=== PATIENT | female | born 1960 | race Caucasian/White ===

== ENCOUNTER 2017-07-03 22:15 | Observation (INO) | payer BC ==
--- NOTE | 2017-07-03 22:42 | PDOC ---
History of Present Illness - General Stated Complaint: CHEST PAIN Time Seen by Provider: 07/03/17 22:41 - History of Present Illness Initial Comments: 56 year old female with PMH of HTN, HLD, and migraines presenting with intermittent chest pain for the past 5 hours. Describes the pain as a pinching let sided pain that is worse with movement and does not co-present with nausea, vomiting, diaphoresis, shoulder radiation, or shortness of breath. She has had a similar pain before but it was not this bad. Her PCP is Dr. Rice and animal daycare provider is Liz. She had an exercise stress performed 3 years prior that was without obvious pathology. Denies fevers, chills, nausea, vomiting, diarrhea , or other symptoms. 07/03/17 23:11 Past History - Past Medical History Allergies/Adverse Reactions: Allergies Allergy/AdvReac Type Severity Reaction Status Date / Time codeine Allergy Rash Verified 07/03/17 22:43 Home Medications: Ambulatory Orders Aspirin 81 mg PO DAILY 09/30/12 Rosuvastatin Calcium [Crestor] 20 mg PO DAILY 12/27/15 Alirocumab [Praluent Pen] 75 mg SQ MONTHLY 07/04/17 Dexlansoprazole [Dexilant] 60 mg PO DAILY 07/04/17 Folic Acid 1 mg PO DAILY 07/04/17 Nadolol [Corgard -] 40 mg PO DAILY 07/04/17 Diabetes: Yes (INDIGESTION) GI Disorders: Yes (gerd) Hypercholesterolemia: Yes - Surgical History Abdominal Surgery: Yes Appendectomy: Yes - Suicide/Smoking/Psychosocial Hx Smoking Status: No Smoking History: Never smoked Number of Cigarettes Smoked Daily: 0 Hx Alcohol Use: No Drug/Substance Use Hx: No Substance Use Type: None Review of Systems - Review of Systems Constitutional: No: Chills, Diaphoresis, Fever, Loss of Appetite HEENTM: No: Recent change in vision, Double Vision Respiratory: No: Cough, Orthopnea, Shortness of Breath Cardiac (ROS): Yes: Chest Pain. No: Irregular Heart Rate, Chest Tightness ABD/GI: No: Diarrhea, Nausea, Vomiting : No: Burning, Dysuria, Discharge Musculoskeletal: No: Back Pain, Joint Pain, Neck Pain Integumentary: No: Lesions, Lumps Neurological: No: Headache, Numbness Psychiatric: No: Anxiety, Depression *Physical Exam - Physical Exam General Appearance: Yes: Nourished, Appropriately Dressed. No: Apparent Distress HEENT: positive: EOMI, ANIYA, Normal ENT Inspection, Normal Voice Neck: positive: Trachea midline, Normal Thyroid, Supple. negative: Tender, Rigid Respiratory/Chest: positive: Lungs Clear, Normal Breath Sounds. negative: Chest Tender, Respiratory Distress, Accessory Muscle Use Cardiovascular: positive: Regular Rhythm, Regular Rate Gastrointestinal/Abdominal: positive: Normal Bowel Sounds, Flat, Soft. negative : Tender Musculoskeletal: positive: Normal Inspection, CVA Tenderness Extremity: positive: Normal Capillary Refill, Normal Inspection, Normal Range of Motion, Pelvis Stable. negative: Tender Integumentary: positive: Normal Color, Dry, Warm Neurologic: positive: impregnator and drier II-XII NML intact, Fully Oriented, Alert, Normal Mood/ Affect, Normal Response, Motor Strength 07/02 ED Treatment Course - LABORATORY CBC & Chemistry Diagram: 07/03/17 23:00 07/03/17 23:00 Medical Decision Making - Medical Decision Making 56 year old female presenting with low risk chest pain but with positive Troponin without EKG changes (NSR, rate 63, MS 142, QRS 66, QTC 405, no ST wave changes). CXR clear. She has had elevated troponins in the past but her previous was not this high. Other labs WNL. Will admit to tele-obs under Dr. Franco/ Silvestre. 07/04/17 00:32 *DC/Admit/Observation/Transfer Diagnosis at time of Disposition: Troponin I above reference range - Discharge Dispostion Condition at time of disposition: Stable Admit: Yes - Referrals Referrals: Paola Rice MD [Primary Care Provider] - - Patient Instructions - Post Discharge Activity
[2017-07-03 22:46] VITALS: BMI 27.0
[2017-07-03 23:14] LABS: BASO % 0.5 % (0-2.0); EOS % 2.2 % (0-4.5); HEMATOCRIT 38.4 % (32.4-45.2); HEMOGLOBIN 13.1 GM/dL (10.7-15.3); LYMPH % 33.8 % (8-40); MCH 31.7 pg (25.7-33.7); MEAN CELL VOLUME 93.1 fl (80-96); MEAN PLT VOLUME 9.8 fl (7.5-11.1); MONO % 5.4 % (3.8-10.2); NEUT % 58.1 % (42.8-82.8); PLATELET COUNT 187 K/MM3 (134-434); RBC 4.13 M/mm3 (3.60-5.2); RDW 14.3 % (11.6-15.6); WHITE BLOOD COUNT 7.3 K/mm3 (4.0-10.0)
--- NOTE | 2017-07-03 23:16 | PDOC ---
Attending Attestation - Resident Resident Name: AdrianaSusisilvinoashli - ED Attending Attestation I have performed the following: I have examined & evaluated the patient, The case was reviewed & discussed with the resident, I agree w/resident's findings & plan - HPI HPI: 07/03/17 23:13 Pt is here for Chest "pinching" on the right side; pain is on the right side and non radiating. - Physicial Exam PE: 07/03/17 23:15 Agree with exam - Medical Decision Making 07/03/17 23:15 Labs will be done and EKG and CXR 07/04/17 02:11 +trop. Pt will be admitted to teleetry for cardaic workout. Heart Score/ECG Review - Age Age: 45-65 - Risk Factors Risk Factors Heart Score: Yes Hx Hypercholesterolemia, Yes Hx Hypertension - [place]: Normal - P and KS Delta Wave(s) Present: No WPW: No - ST and T Early Repolarization: No Non Specific ST-T Wave changes: No - ECG Impressions Normal ECG: Yes Bradycardia: No
[2017-07-03 23:22] LABS: URINE APPEARANCE CLEAR; URINE BILIRUBIN NEGATIVE (<2.0 mg/dL); URINE COLOR LTYELLOW; URINE GLUCOSE (UA) NEGATIVE (NEGATIVE); URINE KETONE NEGATIVE (NEGATIVE); URINE LEUK ESTERASE NEGATIVE (NEGATIVE); URINE NITRITE NEGATIVE (NEGATIVE); URINE PROTEIN NEGATIVE (NEGATIVE); URINE UROBILINOGEN NEGATIVE mg/dL (0.2-1.0)
[2017-07-03 23:24] LABS: EPI CELLS RARE /HPF (FEW); URINE MUCUS RARE
[2017-07-03 23:26] LABS: INR 1.01 (0.82-1.09); PROTHROMBIN TIME (PATIENT) 11.4 SEC (9.7-13.0)
[2017-07-04 00:07] LABS: ALBUMIN 4.2 g/dl (3.4-5.0); ANION GAP 9 (8-16); BILIRUBIN,TOTAL 0.3 mg/dL (0.2-1.0); BLOOD UREA NITROGEN 18 mg/dL (7-18); CALCIUM 8.8 mg/dL (8.5-10.1); CHLORIDE 109 mmol/L (98-107); CO2 27 mmol/L (21-32); CREATININE 0.7 mg/dL (0.55-1.02); GLUCOSE,RANDOM 99 mg/dL (74-106); POTASSIUM 3.9 mmol/L (3.5-5.1); SGOT/AST 20 U/L (15-37); SGPT/ALT 18 U/L (12-78); SODIUM 145 mmol/L (136-145); TOT PROT 7.3 g/dl (6.4-8.2)
[2017-07-04 00:10] LABS: ALK PHOS 71 U/L (45-117)
[2017-07-04] MEDS ORDERED: ASPIRIN 81 MG CHEWABLE TABLETS PO ONE ×2 (00:19→00:28)
[2017-07-04] MEDS ORDERED: ASPIRIN 81 MG CHEWABLE TABLETS ONE (00:20)
--- NOTE | 2017-07-04 01:37 | HP ---
CHIEF COMPLAINT: chest pain PCP: Krystal, Cardio: Liz HISTORY OF PRESENT ILLNESS: this is a 56 year old female with a significant past medical history of HTN, HLD who presented to the ED with a left sided "pinching" chest pain since 5pm 07/03/17. Pt denies SOB, MCNAIR, palpitations, abdominal pain, neck/jaw pain, L arm pain. ER course was notable for: (1) troponin 0.06 (2) ECG no acute changes Recent Travel: pt denies PAST MEDICAL HISTORY: HTN, HLD, Migraines PAST SURGICAL HISTORY: appendectomy Social History: Smoking: pt denies Alcohol: pt denies Drugs: pt denies Family History: mother alive and well father in his 50s, had h/o cholesterol and obesity, unsure of COD 2 sisters/1 brother alive and well 3 children with HLD Allergies codeine Allergy (Verified 07/03/17 22:43) Rash HOME MEDICATIONS: 3 Medication Instructions Recorded Aspirin 81 mg PO DAILY 09/30/12 Rosuvastatin Calcium [Crestor] 20 mg PO DAILY 12/27/15 Alirocumab [Praluent Pen] 75 mg SQ MONTHLY 07/04/17 Dexlansoprazole [Dexilant] 60 mg PO DAILY 07/04/17 Folic Acid 1 mg PO DAILY 07/04/17 Nadolol [Corgard -] 40 mg PO DAILY 07/04/17 REVIEW OF SYSTEMS CONSTITUTIONAL: Absent: fever, chills, diaphoresis, generalized weakness, malaise, loss of appetite, weight change HEENT: Absent: rhinorrhea, nasal congestion, throat pain, throat swelling, difficulty swallowing, mouth swelling, ear pain, eye pain, visual changes CARDIOVASCULAR: chest pain Absent: syncope, palpitations, irregular heart rate, lightheadedness, peripheral edema RESPIRATORY: Absent: cough, shortness of breath, dyspnea with exertion, orthopnea, wheezing, stridor, hemoptysis GASTROINTESTINAL: Absent: abdominal pain, abdominal distension, nausea, vomiting, diarrhea, constipation, melena, hematochezia GENITOURINARY: Absent: dysuria, frequency, urgency, hesitancy, hematuria, flank pain, genital pain MUSCULOSKELETAL: Absent: myalgia, arthralgia, joint swelling, back pain, neck pain SKIN: Absent: rash, itching, pallor HEMATOLOGIC/IMMUNOLOGIC: Absent: easy bleeding, easy bruising, lymphadenopathy, frequent infections ENDOCRINE: Absent: unexplained weight gain, unexplained weight loss, heat intolerance, cold intolerance NEUROLOGIC: Absent: headache, focal weakness or paresthesias, dizziness, unsteady gait, seizure, mental status changes, bladder or bowel incontinence PSYCHIATRIC: Absent: anxiety, depression, suicidal or homicidal ideation, hallucinations. PHYSICAL EXAMINATION Vital Signs - 24 hr 3 07/03/17 22:43 Temperature 98.4 F Pulse Rate 65 Respiratory 18 Rate Blood Pressure 139/82 O2 Sat by Pulse 98 Oximetry (%) GENERAL: Awake, alert, and fully oriented, in no acute distress. HEAD: Normal with no signs of trauma. EYES: Pupils equal, round and reactive to light, extraocular movements intact, sclera anicteric, conjunctiva clear. No lid lag. EARS, NOSE, THROAT: Ears normal, nares patent, oropharynx clear without exudates. Moist mucous membranes. NECK: Normal range of motion, supple without lymphadenopathy, JVD, or masses. LUNGS: Breath sounds equal, clear to auscultation bilaterally. No wheezes, and no crackles. No accessory muscle use. HEART: Regular rate and rhythm, normal S1 and S2 without murmur, rub or gallop. ABDOMEN: Soft, nontender, not distended, normoactive bowel sounds, no guarding, no rebound, no masses. No hepatomegaly or splenomegaly. MUSCULOSKELETAL: Normal range of motion at all joints. No bony deformities or tenderness. No CVA tenderness. UPPER EXTREMITIES: 2+ pulses, warm, well-perfused. No cyanosis. No clubbing. No peripheral edema. LOWER EXTREMITIES: 2+ pulses, warm, well-perfused. No calf tenderness. No peripheral edema. NEUROLOGICAL: Cranial nerves II-XII intact. Normal speech. Normal gait. PSYCHIATRIC: Cooperative. Good eye contact. Appropriate mood and affect. SKIN: Warm, dry, normal turgor, no rashes or lesions noted, normal capillary refill. Laboratory Results - last 24 hr 3 07/03/17 07/03/17 07/03/17 23:00 23:00 23:00 WBC 7.3 RBC 4.13 Hgb 13.1 D Hct 38.4 D MCV 93.1 MCH 31.7 MCHC 34.0 RDW 14.3 Plt Count 187 D MPV 9.8 Neutrophils % 58.1 D Lymphocytes % 33.8 D Monocytes % 5.4 Eosinophils % 2.2 D Basophils % 0.5 PT with INR 11.40 INR 1.01 Sodium Potassium Chloride Carbon Dioxide Anion Gap BUN Creatinine Creat Clearance w eGFR Random Glucose Calcium Total Bilirubin AST ALT Alkaline Phosphatase Creatine Kinase Creatine Kinase Index CK-MB (CK-2) Troponin I Total Protein Albumin Urine Color Ltyellow Urine Appearance Clear Urine pH 6.0 Ur Specific [place] 1.015 Urine Protein Negative Urine Glucose (UA) Negative Urine Ketones Negative Urine Blood 1+ H Urine Nitrite Negative Urine Bilirubin Negative Urine Urobilinogen Negative Ur Leukocyte Esterase Negative Urine WBC (Auto) <1 Urine RBC (Auto) <1 Ur Epithelial Cells Rare Urine Mucus Rare 3 07/03/17 23:00 WBC RBC Hgb Hct MCV MCH MCHC RDW Plt Count MPV Neutrophils % Lymphocytes % Monocytes % Eosinophils % Basophils % PT with INR INR Sodium 145 Potassium 3.9 Chloride 109 H Carbon Dioxide 27 Anion Gap 9 BUN 18 Creatinine 0.7 Creat Clearance w eGFR > 60 Random Glucose 99 Calcium 8.8 Total Bilirubin 0.3 D AST 20 ALT 18 Alkaline Phosphatase 71 Creatine Kinase 188 Creatine Kinase Index 0.9 CK-MB (CK-2) 1.812 Troponin I 0.06 H Total Protein 7.3 Albumin 4.2 Urine Color Urine Appearance Urine pH Ur Specific [place] Urine Protein Urine Glucose (UA) Urine Ketones Urine Blood Urine Nitrite Urine Bilirubin Urine Urobilinogen Ur Leukocyte Esterase Urine WBC (Auto) Urine RBC (Auto) Ur Epithelial Cells Urine Mucus ECG NSR vent rate 63, QTC [address]/T wave changes ASSESSMENT/PLAN: 56yF with PMH HTN, HLD, migraines presented to the ED for chest pain. Chest pain - no ECG changes - had normal stress test 3 years ago per pt - trop 0.06, will trend x 2 more - cardiology consult - ASA 162 given in ED HTN - cont home meds HLD - cont home crestor DVT PPX - deferred, anticipated LOS <48h, reassess if stay exceeds 48h FEN - tolerating po - BMP in am - low sodium diet in am. Dispo: pt currently requires further observation for management of her emergent condition. Visit type - Emergency Visit Emergency Visit: Yes ED Registration Date: 07/03/17 Care time: The patient presented to the Emergency Department on the above date and was hospitalized for further evaluation of their emergent condition. - New Patient This patient is new to me today: Yes Date on this admission: 07/04/17 - Critical Care Critical Care patient: No Hospitalist Screening - Colonoscopy Questionnaire Colonoscopy Questionnaire: Colonoscopy Questionnaire - Patient: 50 - 75 years old and never had a screening colonoscopy: Unknown History of colon or rectal polyps, or CA: No History of IBD, Crohn's disease or UC: No History of abdominal radiation therapy as a child: No - Relative: 1 with colon or rectal CA, or polyps at age 60 or younger: No Colon or rectal CA diagnosed at age 45 or younger: No Multiple relatives with colon or rectal CA: No - Outcome: Screening Result: Negative Screen
[2017-07-04 06:14] LABS: BASO % 0.6 % (0-2.0); EOS % 1.9 % (0-4.5); HEMATOCRIT 35.8 % (32.4-45.2); HEMOGLOBIN 12.3 GM/dL (10.7-15.3); LYMPH % 40.7 % (8-40); MCH 31.7 pg (25.7-33.7); MCHC 34.3 g/dl (32.0-36.0); MEAN CELL VOLUME 92.3 fl (80-96); MEAN PLT VOLUME 9.8 fl (7.5-11.1); MONO % 4.7 % (3.8-10.2); NEUT % 52.1 % (42.8-82.8); PLATELET COUNT 177 K/MM3 (134-434); RBC 3.87 M/mm3 (3.60-5.2); RDW 14.3 % (11.6-15.6); WHITE BLOOD COUNT 6.1 K/mm3 (4.0-10.0)
[2017-07-04 06:40] LABS: ANION GAP 5 (8-16); BLOOD UREA NITROGEN 14 mg/dL (7-18); CALCIUM 8.5 mg/dL (8.5-10.1); CHLORIDE 113 mmol/L (98-107); CO2 26 mmol/L (21-32); CREATININE 0.5 mg/dL (0.55-1.02); GLUCOSE,RANDOM 89 mg/dL (74-106); PHOSPHOROUS 3.9 mg/dL (2.5-4.9); POTASSIUM 3.9 mmol/L (3.5-5.1); SODIUM 144 mmol/L (136-145)
[2017-07-04] MEDS ORDERED: NADOLOL 20 MG TABLET (FP) PO SCH (10:00)
[2017-07-04] MEDS ORDERED: ASPIRIN 81 MG CHEWABLE TABLETS PO SCH (10:00)
[2017-07-04] MEDS ORDERED: PANTOPRAZOLE 40 MG TABLET (FP) PO SCH (10:00)
[2017-07-04] MEDS ORDERED: NADOLOL 40 MG TABLET (FP) PO SCH (10:00)
[2017-07-04] MEDS ORDERED: FOLIC ACID 1 MG TABLET (FP) PO SCH (10:00)
--- NOTE | 2017-07-04 10:40 | EKG ---
Test Reason : Blood Pressure : / mmHG Vent. Rate : 056 BPM Atrial Rate : 056 BPM P-R Int : 146 ms QRS Dur : 070 ms QT Int : 414 ms P-R-T Axes : 054 014 025 degrees QTc Int : 399 ms SINUS BRADYCARDIA OTHERWISE NORMAL ECG WHEN COMPARED WITH ECG OF 03-JUL-2017 22:56, NO SIGNIFICANT CHANGE WAS FOUND Confirmed by DAMIEN GREENFIELD MD ([id number]) on 07/04/2017 10:40:03 AM Referred By: Confirmed By:DAMIEN GREENFIELD MD
--- NOTE | 2017-07-04 10:40 | EKG ---
Test Reason : Blood Pressure : / mmHG Vent. Rate : 063 BPM Atrial Rate : 063 BPM P-R Int : 142 ms QRS Dur : 066 ms QT Int : 396 ms P-R-T Axes : 060 012 030 degrees QTc Int : 405 ms NORMAL SINUS RHYTHM NORMAL ECG WHEN COMPARED WITH ECG OF 11-FEB-2016 10:18, NO SIGNIFICANT CHANGE WAS FOUND Confirmed by DAMIEN GREENFIELD MD ([id number]) on 07/04/2017 10:40:46 AM Referred By: Confirmed By:DAMIEN GREENFIELD MD
--- NOTE | 2017-07-04 13:51 | HP ---
Admitting History and Physical - Primary Care Physician PCP: Paola Rice I - Admission History of Present Illness: 56 year old female with PMH of HTN, HLD, and migraines presenting with intermittent chest pain for the past 5 hours. Describes the pain as a pinching let sided pain that is worse with movement and does not co-present with nausea, vomiting, diaphoresis, shoulder radiation, or shortness of breath. She has had a similar pain before but it was not this bad. Her PCP is Dr. Rice and turntable operator is Liz. She had an exercise stress performed 3 years prior that was without obvious pathology. Denies fevers, chills, nausea, vomiting, diarrhea , or other symptoms. 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 No: HTN Gastrointestinal: Yes: GERD - Past Surgical History Past Surgical History: Yes: None - Smoking History Smoking history: Never smoked Have you smoked in the past 12 months: No Aproximately how many cigarettes per day: 0 - Alcohol/Substance Use Hx Alcohol Use: No Home Medications - Allergies Allergies/Adverse Reactions: Allergies Allergy/AdvReac Type Severity Reaction Status Date / Time codeine Allergy Rash Verified 07/03/17 22:43 - Home Medications Home Medications: Ambulatory Orders Aspirin 81 mg PO DAILY 09/30/12 Rosuvastatin Calcium [Crestor] 20 mg PO DAILY 12/27/15 Alirocumab [Praluent Pen] 75 mg SQ MONTHLY 07/04/17 Dexlansoprazole [Dexilant] 60 mg PO DAILY 07/04/17 Folic Acid 1 mg PO DAILY 07/04/17 Nadolol [Corgard -] 40 mg PO DAILY 07/04/17 Review of Systems - Review of Systems Cardiovascular: reports: Chest Pain (slight pinching on left side of chest) Respiratory: reports: No Symptoms Gastrointestinal: reports: No Symptoms Genitourinary: reports: No Symptoms Physical Examination Vital Signs: Vital Signs Temperature 98.2 F 07/04/17 10:45 Pulse Rate 64 07/04/17 10:45 Respiratory Rate 16 07/04/17 10:45 Blood Pressure 94/59 07/04/17 10:45 O2 Sat by Pulse Oximetry (%) 100 07/04/17 10:45 Constitutional: Yes: Calm Cardiovascular: Yes: Regular Rate and Rhythm, S1, S2 Respiratory: Yes: CTA Bilaterally Gastrointestinal: Yes: Normal Bowel Sounds, Soft Edema: No Neurological: Yes: Alert, Oriented Labs: CBC, BMP 07/04/17 05:50 07/04/17 05:50 Imaging - Results Chest X-ray: Report Reviewed (no active disease) Problem List - Problems (1) Atypical chest pain Assessment/Plan: observation to tele cardio consult asprin echo trend cE serial ekg lipid profile Code(s): R07.89 - OTHER CHEST PAIN (2) Troponin I above reference range Assessment/Plan: see above Code(s): R74.8 - ABNORMAL LEVELS OF OTHER SERUM ENZYMES (3) Hyperlipidemia Assessment/Plan: [facility] lipid profile takes praluent at home Code(s): E78.5 - HYPERLIPIDEMIA, UNSPECIFIED
--- NOTE | 2017-07-04 15:19 | CON.CARD ---
Consult Consult Specialty:: Cardiology Referred by:: Patient of Dr. Paola Rice Reason for Consultation:: Cardiac evaluation - History of Present Illness Chief Complaint: Chest pain History of Present Illness: Patient is a 56 year old female with underlying history of hypertension, hypercholesterolemia and migraines well known to me now presents with left sided chest discomfort radiating to shoulder. She denies shortness of breath or palpitations. She denies paroxysmal nocturnal dyspnea or orthopnea. She denies fever or chills. She denies nausea, vomiting, diarrhea or abdominal pain. She denies dizziness. Blood work revealed troponin of 0.06 now 0.05. She was seen recently in the office and last stress testing was few years ago. 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 Cardio/Vascular: Yes: HTN, Hyperlipdemia Gastrointestinal: Yes: GERD - Past Surgical History Past Surgical History: Yes: Appendectomy - Alcohol/Substance Use Hx Alcohol Use: No History of Substance Use: reports: None - Smoking History Smoking history: Never smoked Have you smoked in the past 12 months: No Aproximately how many cigarettes per day: 0 Home Medications - Allergies Allergies/Adverse Reactions: Allergies Allergy/AdvReac Type Severity Reaction Status Date / Time codeine Allergy Rash Verified 07/03/17 22:43 - Home Medications Home Medications: Ambulatory Orders Aspirin 81 mg PO DAILY 09/30/12 Rosuvastatin Calcium [Crestor] 20 mg PO DAILY 12/27/15 Alirocumab [Praluent Pen] 75 mg SQ MONTHLY 07/04/17 Dexlansoprazole [Dexilant] 60 mg PO DAILY 07/04/17 Folic Acid 1 mg PO DAILY 07/04/17 Nadolol [Corgard -] 40 mg PO DAILY 07/04/17 Review of Systems - Review of Systems Constitutional: denies: Chills, Fever Cardiovascular: reports: Chest Pain. denies: Palpitations, Shortness of Breath Respiratory: denies: Cough, Hemoptysis, PND, Snoring, SOB, SOB on Exertion, Wheezing Gastrointestinal: denies: Constipation, Diarrhea, Melena, Nausea, Rectal Bleeding, Vomiting Neurological: reports: Headache, Other (Migraines). denies: Dizziness, Seizure , Syncope Vital Signs: Vital Signs Temperature 98.2 F 07/04/17 10:45 Pulse Rate 64 07/04/17 10:45 Respiratory Rate 16 07/04/17 10:45 Blood Pressure 94/59 07/04/17 10:45 O2 Sat by Pulse Oximetry (%) 100 07/04/17 10:45 Constitutional: Yes: Well Nourished HENT: Yes: Atraumatic Neck: Yes: Supple Respiratory: Yes: CTA Bilaterally Gastrointestinal: Yes: Normal Bowel Sounds, Soft. No: Tenderness Cardiovascular: Yes: Regular Rate and Rhythm JVD: No Carotid Bruit: No PMI: Non-Displaced Heart Sounds: Yes: S1, S2. No: Gallop Murmur: No: Systolic Murmur, Diastolic Murmur Edema: No - Other Data Labs, Other Data: CBC, BMP 07/04/17 05:50 07/04/17 05:50 INR, PTT INR 1.01 (0.82-1.09) 07/03/17 23:00 Troponin, BNP 07/03/17 07/04/17 07/04/17 23:00 05:50 13:10 Troponin I 0.06 H 0.06 H 0.05 Laboratory Results - last 24 hr 07/03/17 07/03/17 07/03/17 23:00 23:00 23:00 WBC 7.3 RBC 4.13 Hgb 13.1 D Hct 38.4 D MCV 93.1 MCH 31.7 MCHC 34.0 RDW 14.3 Plt Count 187 D MPV 9.8 Neutrophils % 58.1 D Lymphocytes % 33.8 D Monocytes % 5.4 Eosinophils % 2.2 D Basophils % 0.5 PT with INR 11.40 INR 1.01 Sodium Potassium Chloride Carbon Dioxide Anion Gap BUN Creatinine Creat Clearance w eGFR Random Glucose Calcium Phosphorus Magnesium Total Bilirubin AST ALT Alkaline Phosphatase Creatine Kinase Creatine Kinase Index CK-MB (CK-2) Troponin I Total Protein Albumin Urine Color Ltyellow Urine Appearance Clear Urine pH 6.0 Ur Specific [place] 1.015 Urine Protein Negative Urine Glucose (UA) Negative Urine Ketones Negative Urine Blood 1+ H Urine Nitrite Negative Urine Bilirubin Negative Urine Urobilinogen Negative Ur Leukocyte Esterase Negative Urine WBC (Auto) <1 Urine RBC (Auto) <1 Ur Epithelial Cells Rare Urine Mucus Rare 07/03/17 07/04/17 07/04/17 23:00 05:50 05:50 WBC 6.1 RBC 3.87 Hgb 12.3 Hct 35.8 MCV 92.3 MCH 31.7 MCHC 34.3 RDW 14.3 Plt Count 177 MPV 9.8 Neutrophils % 52.1 Lymphocytes % 40.7 H D Monocytes % 4.7 Eosinophils % 1.9 Basophils % 0.6 PT with INR INR Sodium 145 144 Potassium 3.9 3.9 Chloride 109 H 113 H Carbon Dioxide 27 26 Anion Gap 9 5 L BUN 18 14 Creatinine 0.7 0.5 L Creat Clearance w eGFR > 60 Random Glucose 99 89 Calcium 8.8 8.5 Phosphorus 3.9 Magnesium 2.0 Total Bilirubin 0.3 D AST 20 ALT 18 Alkaline Phosphatase 71 Creatine Kinase 188 Creatine Kinase Index 0.9 CK-MB (CK-2) 1.812 Troponin I 0.06 H Total Protein 7.3 Albumin 4.2 Urine Color Urine Appearance Urine pH Ur Specific [place] Urine Protein Urine Glucose (UA) Urine Ketones Urine Blood Urine Nitrite Urine Bilirubin Urine Urobilinogen Ur Leukocyte Esterase Urine WBC (Auto) Urine RBC (Auto) Ur Epithelial Cells Urine Mucus 07/04/17 07/04/17 05:50 13:10 WBC RBC Hgb Hct MCV MCH MCHC RDW Plt Count MPV Neutrophils % Lymphocytes % Monocytes % Eosinophils % Basophils % PT with INR INR Sodium Potassium Chloride Carbon Dioxide Anion Gap BUN Creatinine Creat Clearance w eGFR Random Glucose Calcium Phosphorus Magnesium Total Bilirubin AST ALT Alkaline Phosphatase Creatine Kinase 151 147 Creatine Kinase Index 0.9 CK-MB (CK-2) 1.361 Troponin I 0.06 H 0.05 Total Protein Albumin Urine Color Urine Appearance Urine pH Ur Specific [place] Urine Protein Urine Glucose (UA) Urine Ketones Urine Blood Urine Nitrite Urine Bilirubin Urine Urobilinogen Ur Leukocyte Esterase Urine WBC (Auto) Urine RBC (Auto) Ur Epithelial Cells Urine Mucus Sinus bradycardia with no ST-T abnormality Imaging - Results Chest X-ray: Report Reviewed (Unremarkable) EKG: Report Reviewed Problem List - Problems (1) HTN (hypertension) Code(s): I10 - ESSENTIAL (PRIMARY) HYPERTENSION (2) Migraines Code(s): G43.909 - MIGRAINE, UNSP, NOT INTRACTABLE, WITHOUT STATUS MIGRAINOSUS (3) Hyperlipidemia Code(s): E78.5 - HYPERLIPIDEMIA, UNSPECIFIED (4) Troponin I above reference range Code(s): R74.8 - ABNORMAL LEVELS OF OTHER SERUM ENZYMES (5) Atypical chest pain Code(s): R07.89 - OTHER CHEST PAIN Assessment/Plan 1. Chest pain syndrome with mild elevation of troponin suggests demand ischemia 2. Hypertension 3. Hypercholesterolemia 4. History of migraines PLAN: 1. Continue with current medical therapy including Praluent injection 2. Continue with ASA 3. Further cardiac work up including transthoracic echocardiography to assess LV /RV and valvular function and nuclear myocardial perfusion imaging can be done as outpatient as patient remains stable at this time. Patient will follow up in the office 4. Patient may be discharged home cardiac standpoint Further plans are to follow Burton Hill MD
--- NOTE | 2017-07-04 15:52 | DS ---
Physical Examination Vital Signs: Vital Signs Temperature 98.2 F 07/04/17 10:45 Pulse Rate 64 07/04/17 10:45 Respiratory Rate 16 07/04/17 10:45 Blood Pressure 94/59 07/04/17 10:45 O2 Sat by Pulse Oximetry (%) 100 07/04/17 10:45 Constitutional: Yes: Calm Neck: Yes: Trachea Midline Cardiovascular: Yes: Regular Rate and Rhythm, S1, S2 Respiratory: Yes: CTA Bilaterally Gastrointestinal: Yes: Normal Bowel Sounds, Soft Edema: No Neurological: Yes: Alert, Oriented Labs: CBC, BMP 07/04/17 05:50 07/04/17 05:50 Discharge Summary Reason For Visit: ELEVATED TROPONIN I LEVEL Current Active Problems HTN (hypertension) (Acute) Hyperlipidemia (Acute) Migraines (Acute) Troponin I above reference range (Acute) Hospital Course: - Primary Care Physician PCP: Paola Rice I - Admission History of Present Illness: 56 year old female with PMH of HTN, HLD, and migraines presenting with intermittent chest pain for the past 5 hours. Describes the pain as a pinching let sided pain that is worse with movement and does not co-present with nausea, vomiting, diaphoresis, shoulder radiation, or shortness of breath. She has had a similar pain before but it was not this bad. Her PCP is Dr. Rice and customer account representative is Liz. She had an exercise stress performed 3 years prior that was without obvious pathology. Denies fevers, chills, nausea, vomiting, diarrhea , or other symptoms. 07/03/17 23:11 in ER she got asa 162mg and right now says the pain is much less seen by Cardiology ok to go home and follow up in the office Condition: Stable - Instructions Referrals: Paola Rice MD [Primary Care Provider] - Disposition: HOME - Home Medications Comprehensive Discharge Medication List: Ambulatory Orders Aspirin 81 mg PO DAILY 09/30/12 Rosuvastatin Calcium [Crestor] 20 mg PO DAILY 12/27/15 Alirocumab [Praluent Pen] 75 mg SQ MONTHLY 07/04/17 Dexlansoprazole [Dexilant] 60 mg PO DAILY 07/04/17 Folic Acid 1 mg PO DAILY 07/04/17 Nadolol [Corgard -] 40 mg PO DAILY 07/04/17
[2017-07-04 16:17] VITALS: BP 130/87; PULSE 62; TEMP 97
[2017-07-04] MEDS ORDERED: ROSUVASTATIN CA 20 MG TABLET (FP) PO SCH (22:00)
== END 2017-07-04 16:15 | disposition home or self-care (01) ==
LOC: JER 22:15 → JERBED 07-04 00:56
PROVIDERS: ADMIT Internal Medicine; ATTEND Family Medicine
DX: R07.89 Other chest pain (principal); R77.8 Other specified abnormalities of plasma proteins; I10 Essential (primary) hypertension; E78.5 Hyperlipidemia, unspecified; E11.9 Type 2 diabetes mellitus without complications; K21.9 Gastro-esophageal reflux disease without esophagitis; Z88.5 Allergy status to narcotic agent; Z79.82 Long term (current) use of aspirin
CPT/HCPCS: 36415; 71046-TC-FY; 80048; 80053; 81003; 81015; 82550; 82553; 83735; 84100; 84484; 85025; 85610; 93005; 93010; 99285-25; G0378

== ENCOUNTER 2018-07-19 05:20 | Emergency (ER) | payer OTHER ==
[2018-07-19 05:59] VITALS: TEMP 97.7; BMI 19.7
--- NOTE | 2018-07-19 06:20 | PDOC ---
History of Present Illness - General Chief Complaint: Chest Pain Stated Complaint: CHEST DISCOMFORT Time Seen by Provider: 07/19/18 06:03 - History of Present Illness Initial Comments: 07/19/18 06:19 The patient is a 58 yo LEP [place] speaking female with a PMHx of HLD and arthritis who presents to our ED c/o acute onset of chest discomfort. Patient states the discomfort started yesterday around 11 p.m. and feels like a fullness in her chest, substernal, 6/10, worse with twisting her upper body and sitting forward, improved with laying semi supine. Minimal symptomatic improvement with Tylenol (500 mg) yesterday evening. Pain became particularly severe this morning around 4 a.m. prompting her visit to our ED. H/o stress testing w/Dr. Hill three months previous with no concerning findings. Lifetime non-smoker. Allergy: Codeine Surgical: none reported As per EMR, patient evaluated for CP in 06/2017 at which time Troponin elevated , likely 2/2 to ischemic demand. Past History - Past Medical History Allergies/Adverse Reactions: Allergies Allergy/AdvReac Type Severity Reaction Status Date / Time codeine Allergy Rash Verified 07/19/18 05:55 Home Medications: Ambulatory Orders Aspirin 81 mg PO DAILY 09/30/12 Rosuvastatin Calcium [Crestor] 20 mg PO DAILY 12/27/15 Alirocumab [Praluent Pen] 75 mg SQ MONTHLY 07/04/17 Dexlansoprazole [Dexilant] 60 mg PO DAILY 07/04/17 Folic Acid 1 mg PO DAILY 07/04/17 Nadolol [Corgard -] 40 mg PO DAILY 07/04/17 COPD: No Diabetes: Yes (INDIGESTION) GI Disorders: Yes (gerd) HTN: Yes Hypercholesterolemia: Yes - Surgical History Abdominal Surgery: Yes Appendectomy: Yes - Suicide/Smoking/Psychosocial Hx Smoking Status: No Smoking History: Never smoked Have you smoked in the past 12 months: No Number of Cigarettes Smoked Daily: 0 Information on smoking cessation initiated: No Hx Alcohol Use: No Drug/Substance Use Hx: No Substance Use Type: None *Physical Exam - Vital Signs Last Vital Signs Temp Pulse Resp BP Pulse Ox 97.7 F 63 16 144/78 100 07/19/18 05:20 07/19/18 05:20 07/19/18 05:20 07/19/18 05:20 07/19/18 05:20 - Physical Exam Comments: 07/19/18 06:57 Awake, alert, well appearing S1, S2 no M/R/G 2+ DP pulses B/L no edema Abdomen soft, no TTP, (+) bowel sounds Lungs CLTA B/L Heart Score/ECG Review - ECG Impressions Comment:: 07/19/18 06:53 NSR HR 67, TWI in Lead III and flattened T waves in V2 c/w previous EKG Medical Decision Making - Medical Decision Making 07/19/18 06:34 Marianne Snyder is a 58 year old well appearing female with acute onset of chest discomfort. VS unremarkable. Frontal diagnosis: r/o ACS, costochondritis, MSK , GERD, esophageal spasm, considered but less likely aortic dissection. Also consider AI disease including SLE PLAN: Troponin x1, EKG, CXR, Cardiac monitoring. Tylenol for symptomatic relief. Reassess. No acute ischemic changes in EKG as documented in EKG section of EMR 07/19/18 06:48 Patient to be signed out to Dr. Dickerson (Attending). Labs, CXR pending *DC/Admit/Observation/Transfer Diagnosis at time of Disposition: Chest discomfort - Discharge Dispostion Condition at time of disposition: Fair - Referrals - Patient Instructions - Post Discharge Activity
[2018-07-19] MEDS ORDERED: ACETAMINOPHEN 1000 MG/100 ML VIAL (NON FORMULARY) IVPB ONE (06:38)
[2018-07-19] MEDS ORDERED: ACETAMINOPHEN INJECTION 100 ML IVPB ONE (06:48)
--- NOTE | 2018-07-19 07:04 | PDOC ---
Documentation entered by Vern Ochoa SCRIBE, acting as scribe for Trena Wray DO. Trena Wray DO: This documentation has been prepared by the Don torres Matthew, SCRIBE, under my direction and personally reviewed by me in its entirety. I confirm that the documentation accurately reflects all work, treatment, procedures, and medical decision making performed by me. Attending Attestation - Resident Resident Name: MistyIvory - ED Attending Attestation I have performed the following: I have examined & evaluated the patient, The case was reviewed & discussed with the resident, I agree w/resident's findings & plan - HPI HPI: 07/19/18 06:44 Patient is a 58 year old female with a significant past medical history of HLD, HTN, and arthritis, who presents to the ED with complaints of chest pain. Patient reports experiencing increased chest pain last night at 11 pm. She reports chest discomfort feels like a discomforting fullness in her chest that she rates is a 6/10 pain that is increased when she moves or twists her upper body as well as moving forward and is relieved when she lies semi- fowlers. Patient reports taking tylenol yesterday for the pain with minimal relief, stating the pain lessened but became unbearable this morning at 4 am, prompting her to come into the ED for further evaluation. Denies chest pain, sob. Denies nausea, vomiting. Denies contact with sick individuals, out of state travelling. Denies dysuria, hematuria. Denies constipation, diarrhea. Denies any other symptoms. Allergies: Codeine Social history: No smoking. No alcohol. No illicit drugs. Surgical history: None PMD: None - Physicial Exam PE: 07/19/18 06:44 Agree with residents Physical Exam. - Medical Decision Making 07/20/18 00:46 58-year-old female with chest pain Case signed out to oncoming shift for reevaluation and disposition
[2018-07-19 07:16] LABS: BASO % 0.5 % (0-2.0); EOS % 3.6 % (0-4.5); HEMATOCRIT 39.6 % (32.4-45.2); HEMOGLOBIN 13.2 GM/dL (10.7-15.3); MCH 31.1 pg (25.7-33.7); MCHC 33.4 g/dl (32.0-36.0); MEAN CELL VOLUME 93.1 fl (80-96); MONO % 6.3 % (3.8-10.2); NEUT % 45.6 % (42.8-82.8); PLATELET COUNT 201 K/MM3 (134-434); RBC 4.25 M/mm3 (3.60-5.2); RDW 13.9 % (11.6-15.6)
[2018-07-19 07:29] LABS: INR 0.94 (0.83-1.09); PROTHROMBIN TIME (PATIENT) 11.1 SEC (9.7-13.0)
[2018-07-19 07:32] LABS: ACTIVATED PTT 33.3 SECONDS (25.2-36.5)
[2018-07-19 07:45] LABS: BILIRUBIN,TOTAL 0.3 mg/dL (0.2-1); CALCIUM 9.4 mg/dL (8.5-10.1); CREATININE 0.7 mg/dL (0.55-1.3); N-TERMINAL BNP 232.8 pg/ml (5-125); POTASSIUM 4.4 mmol/L (3.5-5.1); TOT PROT 7.2 g/dl (6.4-8.2)
--- NOTE | 2018-07-19 12:17 | PDOC ---
*Physical Exam - Vital Signs Last Vital Signs Temp Pulse Resp BP Pulse Ox 97.7 F 63 16 144/78 100 07/19/18 05:20 07/19/18 05:20 07/19/18 05:20 07/19/18 05:20 07/19/18 05:50 - Physical Exam Comments: 07/19/18 12:15 Patient endorsed to me by . Patient's 58-year-old female with hypertension and arthritis who presented with atypical chest pain. Seen by Dr. Hill of cardiology. Had a negative nuclear stress test July 2017. Second set of cardiac enzymes within normal limit. Patient safe for outpatient follow-up for further testing.. ED Treatment Course - LABORATORY CBC & Chemistry Diagram: 07/19/18 06:40 07/19/18 06:40 - ADDITIONAL ORDERS Additional order review: Laboratory Results 07/19/18 07/19/18 07/19/18 10:54 06:40 06:40 PT with INR 11.10 INR 0.94 PTT (Actin FS) 33.3 Sodium 144 Potassium 4.4 Chloride 111 H Carbon Dioxide 27 Anion Gap 6 L BUN 16 Creatinine 0.7 Est GFR (CKD-EPI)AfAm 109.91 Est GFR (CKD-EPI)NonAf 94.84 Random Glucose 93 Calcium 9.4 Total Bilirubin 0.3 AST 16 ALT 17 Alkaline Phosphatase 81 Creatine Kinase 112 126 Troponin I 0.04 0.05 B-Natriuretic Peptide 232.8 H Total Protein 7.2 Albumin 4.0 07/19/18 06:40 RBC 4.25 MCV 93.1 MCHC 33.4 RDW 13.9 MPV 10.0 Neutrophils % 45.6 Lymphocytes % 44.0 H Monocytes % 6.3 Eosinophils % 3.6 D Basophils % 0.5 - Medications Given in the ED: ED Medications Discontinued Medications Generic Name Dose Route Start Last Admin Trade Name Freq PRN Reason Stop Dose Admin Acetaminophen 1,000 mg 07/19/18 06:38 07/19/18 06:52 Ofirmev Injection - IVPB 07/19/18 06:39 1,000 mg ONCE ONE Administration *DC/Admit/Observation/Transfer Diagnosis at time of Disposition: Chest discomfort - Discharge Dispostion Disposition: HOME Condition at time of disposition: Stable - Referrals Referrals: Burton Hill MD [Staff Physician] - - Patient Instructions Printed Discharge Instructions: DI for Atypical Chest Pain - Post Discharge Activity
[2018-07-19 12:18] VITALS: BP 120/72; PULSE 60
--- NOTE | 2018-07-19 12:54 | EKG ---
Test Reason : Blood Pressure : / mmHG Vent. Rate : 067 BPM Atrial Rate : 067 BPM P-R Int : 142 ms QRS Dur : 064 ms QT Int : 392 ms P-R-T Axes : 053 -02 009 degrees QTc Int : 414 ms POOR DATA QUALITY, INTERPRETATION MAY BE ADVERSELY AFFECTED NORMAL SINUS RHYTHM INFERIOR INFARCT , AGE UNDETERMINED ABNORMAL ECG WHEN COMPARED WITH ECG OF 04-JUL-2017 04:59, INFERIOR INFARCT IS NOW PRESENT Confirmed by VIRGIL RASMUSSEN, DAMION ([id number]) on 07/19/2018 12:53:52 PM Referred By: Confirmed By:DAMION HERMAN MD
== END 2018-07-19 12:20 | disposition home or self-care (01) ==
LOC: JER 05:20
PROC: 3E033NZ Introduction of Analgesics, Hypnotics, Sedatives into Peripheral Vein, Percutaneous Approach (ICD-10-PCS; principal; 2018-07-19)
DX: R07.89 Other chest pain (principal); K21.9 Gastro-esophageal reflux disease without esophagitis; I10 Essential (primary) hypertension; E78.5 Hyperlipidemia, unspecified
CPT/HCPCS: 36415; 71045-TC-FY; 80053; 82550; 83880; 84484; 85025; 85610; 85730; 93005; 93010; 96374; 99283-25; J0131

== ENCOUNTER 2019-03-11 10:30 | Emergency (ER) | payer OTHER ==
[2019-03-11 10:36] VITALS: BP 149/90; PULSE 85; TEMP 98.4; BMI 22.2
[2019-03-11] MEDS ORDERED: IBUPROFEN 400 MG TABLET (FP) PO ONE ×2 (11:18→11:24)
--- NOTE | 2019-03-11 11:22 | PDOC ---
History of Present Illness - General Chief Complaint: Toothache Stated Complaint: LT SIDE TOOTHPAIN Time Seen by Provider: 03/11/19 11:05 History Source: Patient Exam Limitations: No Limitations - History of Present Illness Is this a multiple visit Asthma Patient?: No Associated Symptoms: denies: chest pain, cough, fever/chills, headaches, nausea/ vomiting, rash Past History - Travel Traveled outside of the country in the last 30 days: No Close contact w/someone who was outside of country & ill: No - Past Medical History Allergies/Adverse Reactions: Allergies Allergy/AdvReac Type Severity Reaction Status Date / Time codeine Allergy Rash Verified 03/11/19 10:36 Home Medications: Ambulatory Orders Aspirin 81 mg PO DAILY 09/30/12 Dexlansoprazole [Dexilant] 60 mg PO DAILY 07/04/17 Folic Acid 1 mg PO DAILY 07/04/17 Chlorhexidine Gluconate [Peridex -] 15 ml MM BID 5 Days #7 cup 03/11/19 Metoclopramide HCl [Metoclopramide HCl Odt] 5 mg PO 03/11/19 Penicillin V Potassium [Pen Vee K -] 500 mg PO TID #21 tablet 03/11/19 Sucralfate [Carafate -] 1 gm PO BID 03/11/19 COPD: No Diabetes: No (INDIGESTION) GI Disorders: Yes (gerd) HTN: Yes Hypercholesterolemia: Yes - Surgical History Abdominal Surgery: Yes Appendectomy: Yes - Psycho Social/Smoking Cessation Hx Smoking Status: No Smoking History: Never smoked Have you smoked in the past 12 months: No Number of Cigarettes Smoked Daily: 0 Hx Alcohol Use: No Drug/Substance Use Hx: No Substance Use Type: None Review of Systems - Review of Systems Constitutional: No: Chills, Fever HEENTM: Yes: Mouth Pain, Dental Problems. No: Recent change in vision, Ear Pain , Throat Pain, Throat Swelling, Difficulty Swallowing Respiratory: No: Shortness of Breath, Productive cough Cardiac (ROS): No: Chest Pain, Lightheadedness, Palpitations, Syncope, Chest Tightness *Physical Exam - Vital Signs Last Vital Signs Temp Pulse Resp BP Pulse Ox 98.4 F 85 18 149/90 100 03/11/19 10:33 03/11/19 10:33 03/11/19 10:33 03/11/19 10:33 03/11/19 10:33 - Physical Exam General Appearance: Yes: Nourished HEENT: positive: EOMI, ANIYA, TMs Normal, Other (+ gum tenderness in right upper molar region, no abscess noted.) Respiratory/Chest: positive: Lungs Clear, Normal Breath Sounds Cardiovascular: positive: Regular Rhythm, Regular Rate, S1, S2 Musculoskeletal: positive: Vertebral Tenderness Integumentary: positive: Normal Color, Dry Neurologic: positive: commercial leasing agent II-XII NML intact, Fully Oriented, Alert, Normal Mood/ Affect, Normal Response, Motor Strength 5/5 Medical Decision Making - Medical Decision Making 03/11/19 11:19 58 years old female with pain toothache in the right upper molar for 2 days. exam consistent with dental tenderness in R upper molar region rx for abx, dental f/u recommended. 03/11/19 11:30 Discharge - Discharge Information Problems reviewed: Yes Clinical Impression/Diagnosis: Dental caries Condition: Stable Disposition: HOME - Admission No - Additional Discharge Information Prescriptions: Chlorhexidine Gluconate [Peridex -] 15 ml MM BID 5 Days #7 cup Penicillin V Potassium [Pen Vee K -] 500 mg PO TID #21 tablet - Follow up/Referral Referrals: Cecile Weber MD [Primary Care Provider] - - Patient Discharge Instructions Patient Printed Discharge Instructions: DI for Dental Pain Additional Instructions: Please contact your insurance for list of dental dentist as scheduled appointment. Take medication as prescribed. Return to the emergency room if worsening symptoms occurs - Post Discharge Activity
== END 2019-03-11 11:41 | disposition home or self-care (01) ==
LOC: JERFT 10:30
DX: K02.9 Dental caries, unspecified (principal); I10 Essential (primary) hypertension; E78.00 Pure hypercholesterolemia, unspecified; K21.9 Gastro-esophageal reflux disease without esophagitis; Z88.5 Allergy status to narcotic agent
CPT/HCPCS: 99281-25

== ENCOUNTER 2019-04-26 11:43 | Emergency (ER) | payer OTHER ==
[2019-04-26 12:09] VITALS: TEMP 98.2; BMI 22.6
--- NOTE | 2019-04-26 12:21 | PDOC ---
History of Present Illness - General Chief Complaint: Blood Pressure Problem Stated Complaint: HIGH BLOOD PRESSURE Time Seen by Provider: 04/26/19 12:10 - History of Present Illness Initial Comments: 04/26/19 12:23 Ms. Lillian Caruso is a 58 yo female w/ pmh of HLD and GERD who presents over complaints of high blood pressure. Patient reports she had a checkup at PCP's office today and noted BP at 160 systolic. Requested nurse re-check upon leaving and her BP was in the higher 160's systolic. When she got home she checked her BP w/ 's BP cuff and noted it to be in 170's and became concerned. She has no complaints at this time. The patient denies chest pain, shortness of breath, headache and dizziness. Denies fever, chills, nausea, vomit, diarrhea and constipation. Denies dysuria, frequency, urgency and hematuria. Past History - Past Medical History Allergies/Adverse Reactions: Allergies Allergy/AdvReac Type Severity Reaction Status Date / Time codeine Allergy Rash Verified 04/26/19 12:02 Home Medications: Ambulatory Orders Aspirin 81 mg PO DAILY 09/30/12 Dexlansoprazole [Dexilant] 60 mg PO DAILY 07/04/17 Folic Acid 1 mg PO DAILY 07/04/17 Metoclopramide HCl [Metoclopramide HCl Odt] 5 mg PO TID PRN 03/11/19 Sucralfate [Carafate -] 1 gm PO BID 03/11/19 Evolocumab [Repatha Syringe] 140 mg SQ ASDIR 04/26/19 Rosuvastatin Calcium [Crestor] 10 mg PO HS 04/26/19 COPD: No Diabetes: No (INDIGESTION) GI Disorders: Yes (gerd) HTN: Yes Hypercholesterolemia: Yes - Surgical History Abdominal Surgery: Yes Appendectomy: Yes - Psycho Social/Smoking Cessation Hx Smoking Status: No Smoking History: Never smoked Have you smoked in the past 12 months: No Number of Cigarettes Smoked Daily: 0 Hx Alcohol Use: No Drug/Substance Use Hx: No Substance Use Type: None Review of Systems - Review of Systems Comments:: 04/26/19 12:25 GENERAL/CONSTITUTIONAL: No fever or chills. No weakness. HEAD, EYES, EARS, NOSE AND THROAT: No change in vision. No ear pain or discharge. No sore throat. CARDIOVASCULAR: No chest pain or shortness of breath RESPIRATORY: No cough, wheezing, or hemoptysis. GASTROINTESTINAL: No nausea, vomiting, diarrhea or constipation. GENITOURINARY: No dysuria, frequency, or change in urination. MUSCULOSKELETAL: No joint or muscle swelling or pain. No neck or back pain. SKIN: No rash NEUROLOGIC: No headache, vertigo, loss of consciousness, or change in strength/ sensation. ENDOCRINE: No increased thirst. No abnormal weight change HEMATOLOGIC/LYMPHATIC: No anemia, easy bleeding, or history of blood clots. ALLERGIC/IMMUNOLOGIC: No hives or skin allergy. *Physical Exam - Vital Signs Last Vital Signs Temp Pulse Resp BP Pulse Ox 98.2 F 101 H 18 115/91 99 04/26/19 12:07 04/26/19 12:07 04/26/19 12:07 04/26/19 12:07 04/26/19 12:07 - Physical Exam 04/26/19 12:25 GENERAL: Awake, alert, and fully oriented, in no acute distress HEAD: No signs of trauma, normocephalic, atraumatic EYES: PERRLA, EOMI, sclera anicteric, conjunctiva clear ENT: Auricles normal inspection, hearing grossly normal, nares patent, oropharynx clear without exudates. Moist mucosa NECK: Normal ROM, supple, no lymphadenopathy, JVD, or masses LUNGS: No distress, speaks full sentences, clear to auscultation bilaterally HEART: Regular rate and rhythm, normal S1 and S2, no murmurs, rubs or gallops, peripheral pulses normal and equal bilaterally. ABDOMEN: Soft, nontender, normoactive bowel sounds. No guarding, no rebound. No masses EXTREMITIES: Normal inspection, Normal range of motion, no edema. No clubbing or cyanosis. NEUROLOGICAL: Cranial nerves II through XII grossly intact. Normal speech, normal gait, no focal sensorimotor deficits SKIN: Warm, Dry, normal turgor, no rashes or lesions noted. Medical Decision Making - Medical Decision Making 04/26/19 12:26 Ms. Lillian Caruso is a 58 yo female w/ pmh as described who presents for evaluation of elevated BP at home. Patient well appearing w/ decreased BP upon arrival. EKG regular rate and rhythm, normal access, normal interval, no ST elevations or depressions. Normal EKG. Patient also endorses she drank a large cup of coffee this AM prior to her doctor's office. No concern for acute process at this time and patient extremely well appearing. Discharging to home for further outpatient f/u as needed. Discharge - Discharge Information Problems reviewed: Yes Clinical Impression/Diagnosis: Elevated BP without diagnosis of hypertension Disposition: HOME - Follow up/Referral - Patient Discharge Instructions Patient Printed Discharge Instructions: How to Monitor Your Blood Pressure at Home Additional Instructions: You were evaluated today in the ER for your blood pressure. Your EKG was completely normal and your blood pressure values were likewise within normal limits. We believe you are safe for discharge. You should drink less caffeine as this may have contributed to your temporarily increased blood pressure. Please follow-up with primary care provider as needed for further evaluation. Return to ER if any shortness of breath, fever, chills, or other concerning symptoms. - Post Discharge Activity
--- NOTE | 2019-04-26 12:23 | PDOC ---
Attending Attestation - Resident Resident Name: Lexa Sky - ED Attending Attestation I have performed the following: I have examined & evaluated the patient, The case was reviewed & discussed with the resident, I agree w/resident's findings & plan, Exceptions are as noted - HPI HPI: 04/26/19 12:27 58yo female with elevated bp at her PMD office. Pt states bp was 160/100 x 3 checks. Pt states no prior hx of htn. Has seen cards on Tuesday and had a normal eval and vss. States hx of hld. Pt denies all somatic complaints. repeat BP in the er 115/91 - Physicial Exam PE: 04/26/19 12:28 Gen: aaox3, nad heart: +s1s2 reg lungs: cta b/l abd: soft, nt/nd +bs ext: no c/c/e neuro: cn ii-xii grossly intact, no focal deficits, ambulates with a steady gait , muscle strength 5/5 UE and LE, sensation intact - Medical Decision Making 04/26/19 12:29 a/p: 58yo female with elevated bp reading at her pmd -pt drank a large cup of caffeinated coffee prior to her appt -repeat bp in the ER normal -discussed caffeine use -pt denies all somatic complaints -ekg nonacute -stable for dc to home and pmd follow up for a repeat bp check in a week after decreasing caffeine use Heart Score/ECG Review - ECG Intrepretation Comment:: 04/26/19 12:30 sinus at 80 with a sinus arrhythmia, t wave inversions III which are nonspecific, no acute st/t wave findings
[2019-04-26 12:37] VITALS: BP 115/88; PULSE 89
--- NOTE | 2019-04-26 16:10 | EKG ---
Test Reason : Blood Pressure : / mmHG Vent. Rate : 080 BPM Atrial Rate : 080 BPM P-R Int : 132 ms QRS Dur : 070 ms QT Int : 358 ms P-R-T Axes : 051 007 013 degrees QTc Int : 412 ms SINUS RHYTHM WITH MARKED SINUS ARRHYTHMIA CANNOT RULE OUT ANTERIOR INFARCT , AGE UNDETERMINED ABNORMAL ECG WHEN COMPARED WITH ECG OF 19-JUL-2018 05:35, NO SIGNIFICANT CHANGE WAS FOUND Confirmed by ADRY RASMUSSEN, KALIN ([id number]) on 04/26/2019 4:10:17 PM Referred By: Confirmed By:KALIN RIDER MD
== END 2019-04-26 12:33 | disposition home or self-care (01) ==
LOC: JER 11:43
DX: I10 Essential (primary) hypertension (principal); E78.5 Hyperlipidemia, unspecified; K21.9 Gastro-esophageal reflux disease without esophagitis
CPT/HCPCS: 93005; 93010; 99283-25

== ENCOUNTER 2020-11-23 13:43 | Emergency (ER) | payer OTHER ==
[2020-11-23 14:10] VITALS: TEMP 98; BMI 25.4
[2020-11-23] MEDS ORDERED: LIDOCAINE 5% TOPICAL PATCH TP ONE (14:25)
[2020-11-23] MEDS ORDERED: ASPIRIN 81 MG CHEWABLE TABLETS PO ONE (14:25)
[2020-11-23] MEDS ORDERED: ASPIRIN 81 MG CHEWABLE TABLETS ONE (14:32)
[2020-11-23] MEDS ORDERED: LIDOCAINE 5% TOPICAL PATCH ONE (14:33)
[2020-11-23 14:35] LABS: BASO % 0.6 % (0-2.0); EOS % 1.4 % (0-4.5); HEMATOCRIT 40.8 % (32.4-45.2); HEMOGLOBIN 13.9 GM/dL (10.7-15.3); MCH 31.3 pg (25.7-33.7); MCHC 33.9 g/dl (32.0-36.0); MEAN CELL VOLUME 92.2 fl (80-96); MEAN PLT VOLUME 9.1 fl (7.5-11.1); MONO % 4.6 % (3.8-10.2); NEUT % 59.4 % (42.8-82.8); PLATELET COUNT 236 10^3/uL (134-434); RBC 4.43 M/mm3 (3.60-5.2); RDW 13.8 % (11.6-15.6); WHITE BLOOD COUNT 7.2 K/mm3 (4.0-10.0)
[2020-11-23] MEDS ORDERED: ACETAMINOPHEN 500 MG TABLET (FP) PO ONE (14:39)
[2020-11-23 15:00] LABS: BLOOD UREA NITROGEN 13.7 mg/dL (7-18); CALCIUM 9.2 mg/dL (8.5-10.1)
[2020-11-23 15:04] LABS: CREATININE 0.8 mg/dL (0.55-1.3)
[2020-11-23 15:05] LABS: BILIRUBIN,TOTAL 0.3 mg/dL (0.2-1); TOT PROT 7.4 g/dl (6.4-8.2)
[2020-11-23] MEDS ORDERED: ACETAMINOPHEN 325 MG TABLET (FP) ONE (15:09)
[2020-11-23 15:47] VITALS: BP 128/78; PULSE 68
[2020-11-23] MEDS ORDERED: LIDOCAINE PATCH REMOVAL MC SCH (22:00)
== END 2020-11-23 15:47 | disposition home or self-care (01) ==
LOC: JER 13:43
DX: R07.89 Other chest pain (principal)
CPT/HCPCS: 36415; 71046-TC-FY; 80053; 84484; 85025; 93005; 93010; 99285-25

== ENCOUNTER 2021-06-03 21:49 | Observation (INO) | payer OTHER ==
[2021-06-03] MEDS ORDERED: FAMOTIDINE 20 MG/50 ML IVPB 20 MG/50 ML MG IVPB ONE ×2 (22:45→23:28)
[2021-06-03] MEDS ORDERED: ONDANSETRON 4 MG/2 ML VIAL IVPUSH ONE (22:45)
[2021-06-03] MEDS ORDERED: SODIUM CHLORIDE 0.9% 500 ML INFUS.BAG IV ONE (22:45)
[2021-06-03] MEDS ORDERED: ONDANSETRON 4 MG/2 ML VIAL ONE (23:28)
[2021-06-03 23:54] LABS: BASO % 0.3 % (0-2.0); EOS % 0.3 % (0-4.5); HEMATOCRIT 37.8 % (32.4-45.2); HEMOGLOBIN 12.6 GM/dL (10.7-15.3); LYMPH % 14.1 % (8-40); MCH 30.1 pg (25.7-33.7); MCHC 33.3 g/dl (32.0-36.0); MEAN CELL VOLUME 90.3 fl (80-96); MEAN PLT VOLUME 9.3 fl (7.5-11.1); NEUT % 81.3 % (42.8-82.8); PLATELET COUNT 205 10^3/uL (134-434); RBC 4.19 M/mm3 (3.60-5.2); RDW 13.4 % (11.6-15.6); WHITE BLOOD COUNT 7.7 K/mm3 (4.0-10.0)
[2021-06-04 00:16] LABS: CALCIUM 8.8 mg/dL (8.5-10.1)
[2021-06-04 00:17] LABS: ALBUMIN 3.6 g/dl (3.4-5.0); BLOOD UREA NITROGEN 15.8 mg/dL (7-18)
[2021-06-04 00:19] LABS: CREATININE 0.7 mg/dL (0.55-1.3)
[2021-06-04 00:21] LABS: BILIRUBIN,TOTAL 0.5 mg/dL (0.2-1)
[2021-06-04] MEDS ORDERED: ASPIRIN 81 MG CHEWABLE TABLETS PO ONE ×2 (01:09→03:43)
[2021-06-04] MEDS ORDERED: SODIUM CHLORIDE 0.9% 500 ML INFUS.BAG IV ONE (01:46)
[2021-06-04] MEDS ORDERED: HEPARIN NA (PORCINE) 5,000 UNITS/ML 1ML VIAL IVPUSH PRN ×3 (03:44)
[2021-06-04] MEDS ORDERED: HEPARIN NA (PORCINE) 5,000 UNITS/ML 1ML VIAL IVPUSH ONE (03:44)
[2021-06-04] MEDS ORDERED: HEPARIN SOD,PORK IN 0.45% NACL 25,000 UNIT/500 ML INFUS.BAG IVPB SCH (03:45)
[2021-06-04] MEDS ORDERED: ASPIRIN 81 MG CHEWABLE TABLETS ONE (03:49)
[2021-06-04] MEDS ORDERED: ONDANSETRON 4 MG/2 ML VIAL IVPUSH PRN (04:15)
[2021-06-04] MEDS ORDERED: ACETAMINOPHEN 325 MG TABLET (FP) PO PRN (04:15)
[2021-06-04] MEDS ORDERED: POLYETHYLENE GLYCOL (HEALTHYLAX) 3350 17 GM PACKET PO PRN (04:15)
[2021-06-04] MEDS ORDERED: SODIUM CHLORIDE 0.9%/KCL 20 MEQ/1,000 ML INFUS.BAG IV SCH (04:30)
[2021-06-04] MEDS ORDERED: PNEUMOC 13-VAL CONJ-DIP CRM/PF 0.5 ML DISP.SYRIN IM ONE (05:27)
[2021-06-04 05:28] VITALS: BMI 23.1
[2021-06-04 07:50] LABS: HEMATOCRIT 33.5 % (32.4-45.2); HEMOGLOBIN 11.3 GM/dL (10.7-15.3); MCH 30.8 pg (25.7-33.7); MCHC 33.7 g/dl (32.0-36.0); MEAN CELL VOLUME 91.4 fl (80-96); MEAN PLT VOLUME 9.8 fl (7.5-11.1); PLATELET COUNT 176 10^3/uL (134-434); RBC 3.67 M/mm3 (3.60-5.2); RDW 13.2 % (11.6-15.6)
[2021-06-04 08:12] LABS: ALBUMIN 3.2 g/dl (3.4-5.0); BLOOD UREA NITROGEN 13.5 mg/dL (7-18); CALCIUM 8.1 mg/dL (8.5-10.1)
[2021-06-04 08:15] LABS: CREATININE 0.6 mg/dL (0.55-1.3)
[2021-06-04 08:16] LABS: BILIRUBIN,TOTAL 0.4 mg/dL (0.2-1); TOT PROT 5.8 g/dl (6.4-8.2)
[2021-06-04 08:22] LABS: INR 1.13 (0.83-1.09)
[2021-06-04 08:25] LABS: ACTIVATED PTT 27.9 SECONDS (25.2-36.5)
[2021-06-04] MEDS ORDERED: PNEUMOCOCCAL 23 VACCINE 0.5 ML VIAL IM ONE (10:00)
[2021-06-04] MEDS ORDERED: VALSARTAN 160 MG TABLET PO SCH (10:00)
[2021-06-04] MEDS ORDERED: PANTOPRAZOLE 40 MG TABLET PO SCH (10:00)
[2021-06-04 15:32] VITALS: BP 114/72; PULSE 87; TEMP 99.1
[2021-06-04] MEDS ORDERED: ROSUVASTATIN CA 10 MG TABLET PO SCH (22:00)
== END 2021-06-04 16:10 | disposition home or self-care (01) ==
LOC: JER 21:49 → JERBED 06-04 01:12 → J4W 06-04 04:28
PROVIDERS: ADMIT Hospitalist; ATTEND Family Medicine
PROC: 3E033GC Introduction of Other Therapeutic Substance into Peripheral Vein, Percutaneous Approach (ICD-10-PCS; principal; 2021-06-04)
PROC: 3E0234Z Introduction of Serum, Toxoid and Vaccine into Muscle, Percutaneous Approach (ICD-10-PCS; 2021-06-04)
PROC: 3E0337Z Introduction of Electrolytic and Water Balance Substance into Peripheral Vein, Percutaneous Approach (ICD-10-PCS; 2021-06-04)
DX: R10.13 Epigastric pain (principal); R00.0 Tachycardia, unspecified; R79.89 Other specified abnormal findings of blood chemistry; E78.5 Hyperlipidemia, unspecified; I24.9 Acute ischemic heart disease, unspecified; G43.909 Migraine, unspecified, not intractable, without status migrainosus; R77.8 Other specified abnormalities of plasma proteins; Z86.39 Personal history of other endocrine, nutritional and metabolic disease; Z86.79 Personal history of other diseases of the circulatory system; R11.2 Nausea with vomiting, unspecified; R07.89 Other chest pain; K21.9 Gastro-esophageal reflux disease without esophagitis; Z88.6 Allergy status to analgesic agent; Z29.9 Encounter for prophylactic measures, unspecified
CPT/HCPCS: 36415; 71045-TC-FY; 80053; 80061; 83036; 83690; 83735; 84436; 84443; 84484; 85025; 85027; 85610; 85730; 90732; 93005; 93010; 93306-TC; 96365; 96372; 96375; 99285-25; C9803-CS; G0009; G0378; U0003; U0005

== ENCOUNTER 2021-11-21 11:43 | Observation (INO) | payer OTHER ==
[2021-11-21 14:30] LABS: BASO % 0.6 % (0-2.0); EOS % 1.6 % (0-4.5); HEMOGLOBIN 13.9 GM/dL (10.7-15.3); LYMPH % 24.7 % (8-40); MCH 31.5 pg (25.7-33.7); MEAN CELL VOLUME 92.8 fl (80-96); MEAN PLT VOLUME 9.2 fl (7.5-11.1); MONO % 3.5 % (3.8-10.2); NEUT % 69.6 % (42.8-82.8); PLATELET COUNT 228 10^3/uL (134-434); RBC 4.42 M/mm3 (3.60-5.2); RDW 13.8 % (11.6-15.6); WHITE BLOOD COUNT 7.5 K/mm3 (4.0-10.0)
[2021-11-21 14:50] LABS: CHLORIDE 110 mmol/L (98-107); SODIUM 143 mmol/L (136-145)
[2021-11-21 14:52] LABS: ALBUMIN 4.3 g/dl (3.4-5.0); ANION GAP 8 MMOL/L (8-16); BLOOD UREA NITROGEN 15.6 mg/dL (7-18); CALCIUM 10.2 mg/dL (8.5-10.1); CO2 26 mmol/L (21-32); GLUCOSE,RANDOM 101 mg/dL (74-106)
[2021-11-21 14:55] LABS: CREATININE 0.8 mg/dL (0.55-1.3); SGOT/AST 24 U/L (15-37); SGPT/ALT 22 U/L (13-61)
[2021-11-21 14:57] LABS: BILIRUBIN,TOTAL 0.4 mg/dL (0.2-1); TOT PROT 8.1 g/dl (6.4-8.2)
[2021-11-21 14:58] LABS: ALK PHOS 99 U/L (45-117)
[2021-11-21] MEDS: ASPIRIN 81 MG CHEWABLE TABLETS PO SCH (18:02)
[2021-11-21] MEDS ORDERED: ROSUVASTATIN CA 10 MG TABLET PO SCH (22:00)
[2021-11-21] MEDS ORDERED: ROSUVASTATIN CA 20 MG TABLET ONE (22:57)
[2021-11-21] MEDS ORDERED: SUCRALFATE 1 GM TABLET (FP) ONE (22:57)
[2021-11-21] MEDS: SUCRALFATE 1 GM TABLET (FP) PO SCH (23:03)
[2021-11-22 08:29] LABS: BASO % 0.5 % (0-2.0); HEMATOCRIT 38.6 % (32.4-45.2); HEMOGLOBIN 13.1 GM/dL (10.7-15.3); LYMPH % 31.3 % (8-40); MCH 31.3 pg (25.7-33.7); MEAN CELL VOLUME 92.3 fl (80-96); MEAN PLT VOLUME 9.1 fl (7.5-11.1); MONO % 5.9 % (3.8-10.2); NEUT % 60.3 % (42.8-82.8); PLATELET COUNT 221 10^3/uL (134-434); RBC 4.19 M/mm3 (3.60-5.2); RDW 14.1 % (11.6-15.6); WHITE BLOOD COUNT 6.9 K/mm3 (4.0-10.0)
[2021-11-22 08:39] LABS: CHLORIDE 110 mmol/L (98-107); SODIUM 144 mmol/L (136-145)
[2021-11-22 08:45] LABS: CALCIUM 9.2 mg/dL (8.5-10.1)
[2021-11-22 08:46] LABS: ALBUMIN 3.8 g/dl (3.4-5.0); ANION GAP 7 MMOL/L (8-16); CO2 27 mmol/L (21-32); GLUCOSE,RANDOM 85 mg/dL (74-106)
[2021-11-22 08:49] LABS: BILIRUBIN,TOTAL 0.5 mg/dL (0.2-1); CHOLESTEROL 171 mg/dL (50-200); CREATININE 0.7 mg/dL (0.55-1.3); SGOT/AST 21 U/L (15-37); SGPT/ALT 20 U/L (13-61); TOT PROT 7.1 g/dl (6.4-8.2); TRIGLYCERIDES 84 mg/dL (0-150)
[2021-11-22 08:50] LABS: ALK PHOS 86 U/L (45-117); LDL CHOLESTEROL (ONLY SJRH) 89 mg/dL (5-100)
[2021-11-22 08:51] LABS: HDL CHOLESTEROL 62 mg/dL (40-60)
[2021-11-22] MEDS ORDERED: SUCRALFATE 1 GM TABLET (FP) ONE (09:29)
[2021-11-22] MEDS ORDERED: ASPIRIN 81 MG CHEWABLE TABLETS ONE (09:30)
[2021-11-22] MEDS ORDERED: FOLIC ACID 1 MG TABLET (FP) ONE (09:30)
[2021-11-22] MEDS ORDERED: VALSARTAN 80 MG TABLET ONE (09:30)
[2021-11-22] MEDS ORDERED: VALSARTAN 160 MG TABLET PO SCH (10:00)
[2021-11-22] MEDS ORDERED: ASPIRIN 81 MG CHEWABLE TABLETS PO SCH (10:00)
[2021-11-22] MEDS ORDERED: FOLIC ACID 1 MG TABLET (FP) PO SCH (10:00)
[2021-11-22] MEDS: ASPIRIN 81 MG CHEWABLE TABLETS PO SCH (10:16)
[2021-11-22] MEDS: SUCRALFATE 1 GM TABLET (FP) PO SCH (10:16)
[2021-11-22 12:57] VITALS: BP 133/83; PULSE 97; RESP 19; TEMP 97.9
== END 2021-11-22 13:00 | disposition home or self-care (01) ==
LOC: JER 11:43 → JERBED 17:29
PROVIDERS: ADMIT Internal Medicine; ATTEND Family Medicine
DX: I34.0 Nonrheumatic mitral (valve) insufficiency (principal); E78.5 Hyperlipidemia, unspecified; G45.9 Transient cerebral ischemic attack, unspecified; R77.8 Other specified abnormalities of plasma proteins; I10 Essential (primary) hypertension; M62.81 Muscle weakness (generalized); R20.0 Anesthesia of skin; Z29.8 Encounter for other specified prophylactic measures; Z88.6 Allergy status to analgesic agent
CPT/HCPCS: 36415; 70450-TC; 71046-TC-FY; 80053; 80061; 83735; 84443; 84484; 85025; 93005; 93010; 93880-TC; 99285-25; C9803-CS; G0378; U0003; U0005